=== PATIENT | male | born 1960 | race Two or more races ===

== ENCOUNTER 2020-12-08 12:20 | Inpatient (IN) | payer OTHER ==
[~2020-12-08] VITALS: Ht 180.3 cm; Wt 83.4 kg
[2020-12-08] MEDS ORDERED: ASPirin 81 mg TAB PO ONE (12:30)
[2020-12-08 13:36] LABS: Basophils # (auto) 0.1 10 ^3/uL (0-0.2); Basophils % (auto) 0.7 % (0.0-2.0); Eosinophils # (auto) 0.2 10 ^3/uL (0-0.8); Eosinophils % (auto) 2.1 % (0.0-7.0); Hematocrit 41.2 % (41.0-53.0); Hemoglobin 14.2 g/dL (13.5-17.5); Lymphocytes # (auto) 1.1 10 ^3/uL (0.4-5.4); Lymphocytes % (auto) 14.7 % (10.0-50.0); Mean Corpuscular Hemoglobin 27.2 pg (28.0-32.0); Mean Corpuscular Hgb Conc. 34.6 g/dL (32.0-36.0); Mean Corpuscular Volume 78.7 fL (80.0-100.0); Monocytes # (auto) 0.6 10 ^3/uL (0-1.3); Monocytes % (auto) 8.4 % (0.0-12.0); Neutrophils # (auto) 5.6 10 ^3/uL (1.6-8.6); Neutrophils % (auto) 74.1 % (37.0-80.0); Nucleated Red Blood Cells % 0.1 %; Red Blood Cells 5.23 10^6/uL (4.5-5.90); Red Cell Distribution Width 14.8 % (11.8-14.3); White Blood Cell 7.5 10^3/uL (4.4-10.8)
[2020-12-08 14:07] LABS: Chloride 108 mmol/L (98-107); Potassium 4.1 mmol/L (3.5-5.1); Sodium 139 mmol/L (136-145)
[2020-12-08 14:25] LABS: Alanine Aminotransferase 21 U/L (16-61); Albumin 3.6 g/dL (3.4-5.0); Alkaline Phosphatase 64 U/L (45-117); Anion Gap 5 (5-15); Aspartate Aminotransferase 44 U/L (15-37); BUN/Creatinine Ratio 13.7; Bilirubin, Total 0.8 mg/dL (0.2-1.0); Blood Urea Nitrogen 14 mg/dL (7-18); Calcium 8.8 mg/dL (8.5-10.1); Carbon Dioxide 26 mmol/L (21-32); GFR African American 96 mL/min; GFR Non-African American 80 mL/min; Glucose 99 mg/dL (74-106); Magnesium 2.2 mg/dL (1.6-2.6); Total Protein 6.7 g/dL (6.4-8.2)
[2020-12-08] MEDS ORDERED: NITROGLYCERIN 0.4 MG SL TAB SL PRN (15:15)
[2020-12-08] MEDS ORDERED: DEXTROSE (50%) 50ML SYRG IV PRN (15:15)
[2020-12-08] MEDS ORDERED: MORPHINE SULFATE INJECTION 2 MG/ML SYRG IV PRN (15:15)
[2020-12-08] MEDS: SOD CHL 0.45% 1,000 ML IV SCH ×2 (15:54→21:05)
[2020-12-08] MEDS ORDERED: METF-370 PO (16:00)
[2020-12-08] MEDS ORDERED: DULO20CA PO (16:00)
[2020-12-08] MEDS ORDERED: NAPR375T27 PO (16:00)
[2020-12-08] MEDS ORDERED: ASPI325T4 PO (16:00)
[2020-12-08] MEDS: InsuLIN REG 1unit/0.01ml Soln (100units/ml) SC SCH (17:00)
[2020-12-08] MEDS: ACCU-CHEK COMFORT CURVE STRIP VI SCH ×2 (17:12→22:13)
[2020-12-08] MEDS: ATORVASTATIN 20 MG TAB PO SCH (17:26)
[2020-12-08] MEDS: DULoxetine HCL 30 MG CAP PO SCH (17:26)
[2020-12-08] MEDS ORDERED: NAPROXEN 500 MG TAB PO SCH (17:30)
[2020-12-08] MEDS ORDERED: POM SC (17:44)
[2020-12-08 20:00] VITALS: BP 129/87
[2020-12-08 22:00] VITALS: BP 129/87
[2020-12-08] MEDS ORDERED: InsuLIN REG 1unit/0.01ml Soln (100units/ml) SC SCH (22:00)
[2020-12-09 05:00] VITALS: BP 130/86
[2020-12-09] MEDS: InsuLIN REG 1unit/0.01ml Soln (100units/ml) SC SCH (05:29)
[2020-12-09] MEDS: ACCU-CHEK COMFORT CURVE STRIP VI SCH (05:30)
[2020-12-09] MEDS: SOD CHL 0.45% 1,000 ML IV SCH ×3 (05:50→17:48)
[2020-12-09 07:02] LABS: Urine Bacteria NONE SEEN /hpf (None Seen); Urine Blood Negative /uL (Negative); Urine Specific Gravity 1.012 (1.001-1.035); Urine WBC 1 /hpf (0 - 3)
[2020-12-09] MEDS ORDERED: ADENOSINE 70 MG in GIVE UN-DILUTED 0 ML IV ONE (07:30)
[2020-12-09 09:00] VITALS: BP 140/83
[2020-12-09] MEDS: ASPirin 81 mg TAB PO SCH (09:48)
[2020-12-09] MEDS: LISINOPRIL 5 MG TAB PO SCH (09:49)
[2020-12-09] MEDS: ENOXAPARIN SOD 40 MG/0.4 ML SYRINGE SC SCH (09:50)
[2020-12-09] MEDS: METOPROLOL TARTRATE 25 MG TAB PO SCH (09:50)
[2020-12-09 13:30] VITALS: BP 131/80
[2020-12-09 17:09] VITALS: BP 101/80
[2020-12-09] MEDS: DULoxetine HCL 30 MG CAP PO SCH (18:05)
[2020-12-09] MEDS: ATORVASTATIN 20 MG TAB PO SCH (18:05)
[2020-12-09] MEDS: NAPROXEN 500 MG TAB PO PRN (20:17)
[2020-12-09 22:00] VITALS: BP 113/69
[2020-12-10] MEDS: SOD CHL 0.45% 1,000 ML IV SCH ×3 (00:35→13:55)
[2020-12-10 05:00] VITALS: BP 124/76
[2020-12-10] MEDS: NAPROXEN 500 MG TAB PO PRN (08:46)
[2020-12-10 09:00] VITALS: BP 133/77
[2020-12-10] MEDS: METOPROLOL TARTRATE 25 MG TAB PO SCH (10:00)
[2020-12-10] MEDS: LISINOPRIL 5 MG TAB PO SCH (11:37)
[2020-12-10] MEDS: ENOXAPARIN SOD 40 MG/0.4 ML SYRINGE SC SCH (11:37)
[2020-12-10] MEDS: ASPirin 81 mg TAB PO SCH (11:37)
[2020-12-10 16:30] VITALS: BP 132/76
[2020-12-10] MEDS: ATORVASTATIN 20 MG TAB PO SCH (18:03)
[2020-12-10] MEDS: DULoxetine HCL 30 MG CAP PO SCH (18:03)
[2020-12-10 20:41] VITALS: BP 128/81
== END 2020-12-10 21:30 | DRG 313 ==
LOC: EEVIPCON 12:20 → ER 12:20 → TELE 15:12 → TELE-WESTW 18:44
PROVIDERS: ADMIT Internal Medicine; ATTEND Internal Medicine
DX: R07.89 Other chest pain (principal); E11.9 Type 2 diabetes mellitus without complications; I10 Essential (primary) hypertension; E78.5 Hyperlipidemia, unspecified; Z20.822 Contact with and (suspected) exposure to COVID-19; M19.90 Unspecified osteoarthritis, unspecified site; I25.2 Old myocardial infarction; Z83.3 Family history of diabetes mellitus; Z85.6 Personal history of leukemia; Z86.73 Personal history of transient ischemic attack (TIA), and cerebral infarction without residual deficits
CPT/HCPCS: 36415; 71045; 78452; 80053; 81001; 82962; 83735; 83880; 84484; 85025; 85379; 87081; 87426; 93005; 93017; G0378; J0153